=== PATIENT | female | born 2000 | race Caucasian/White ===

== ENCOUNTER 2018-08-12 20:40 | Emergency (ER) | payer OTHER ==
--- NOTE | 2018-08-12 21:06 | RAD ---
CHEST ONE VIEW: 08/12/18 HISTORY: Dyspnea. Heart size is normal. The lungs are clear. No confluent pneumonia, overt edema, or pleural effusion. IMPRESSION: No acute intrathoracic disease. POS: [facility]
[2018-08-12 21:12] LABS: #Basophils 0.1 thou/uL (0.0-0.2); #Eosinphils 0.1 thou/uL (0.0-0.7); #Lymphocytes 2.4 thou/uL (1.20-3.40); #Monocytes 0.8 thou/uL (0.11-0.59); #Neutrophils 6.3 thou/uL (1.40-6.50); %Eosinophils 0.9 % (0.0-10.0); %Lymphocytes 25.1 % (28.0-48.0); %Monocytes 7.8 % (0.0-4.0); %Neutrophils 65.2 % (31.0-61.0); Hemoglobin 14.4 g/dL (12.0-16.0); Mean Corpuscular HGB CONC 33.9 g/dL (32.0-36.0); Mean Corpuscular Hemoglobin 30.2 pg (25.0-35.0); Mean Platelet Volume 9.7 fL (7.4-10.4); Platelet Count 315 thou/uL (130-400); RBC Distribution Width 11.8 % (11.5-14.5); Red Blood Cell (RBC) Count 4.78 mill/uL (4.00-5.20); White Blood Cell (WBC) Count 9.7 thou/uL (4.8-10.8)
[2018-08-12 21:40] LABS: ALT (SGPT) 11 U/L (8-55); AST (SGOT) 16 U/L (5-34); Acetaminophen Less than 6.0 mcg/mL (10.0-30.0); Albumin 3.9 g/dL (3.5-5.0); Alcohol Less than 10 mg/dL (Less than 10); Alkaline Phosphatase 49 U/L (40-150); Anion Gap 14 mmol/L (10-20); BUN (Urea Nitrogen) 11 mg/dL (7.0-18.7); Bilirubin, Total 0.3 mg/dL (0.2-1.2); CK (CPK) 44 U/L (29-168); Calc. Creatinine Clearance 0 mL/min (70-130); Calcium 9.3 mg/dL (7.8-10.44); Carbon Dioxide 20 mmol/L (22-29); Chloride 108 mmol/L (98-107); Estimated GFR-MDRD 90; Globulin 3.3 g/dL (2.4-3.5); Glucose 110 mg/dL (70-105); Potassium 4.2 mmol/L (3.5-5.1); Protein, Total 7.2 g/dL (6.0-8.3); Salicylate Less than 8.0 mg/dL (15.0-30.0); Sodium 138 mmol/L (136-145)
[2018-08-12 22:25] LABS: Bilirubin Negative (Negative); Blood, Urine Negative (Negative); Clarity CLEAR (Clear); Glucose, Urine (Dipstick) Negative (Negative); Leukocyte Negative (Negative); Nitrite Negative (Negative); Protein, Urine (Dipstick) Negative (Neg-Trace)
[2018-08-12 22:27] LABS: Pregnancy Test - Urine (BHCG) Negative (Negative); Pregu Control Background? CLEAR/WHITE (CLR/WHITE); Pregu Control Bar Appear? YES (CONTROL BAR)
[2018-08-12 22:34] LABS: Amphetamine Not Detected (NotDetected); Barbiturates Screen Not Detected (NotDetected); Benzodiazepine Screen Not Detected (NotDetected); Cocaine Metabolite Screen Not Detected (NotDetected); Medtox Control Line Valid? VALID (VALID); Medtox Reader # READER 4; Methadone Not Detected (NotDetected); Methamphetamine Not Detected (NotDetected); Opiate Screen Not Detected (NotDetected); Oxycodone Screen Not Detected (NotDetected); Phencyclidine (PCP) Not Detected (NotDetected); THC/Cannabinoid Screen Not Detected (NotDetected); Tricyclic Screen Not Detected (NotDetected)
== END 2018-08-13 09:17 ==
LOC: ERS 20:40
DX: T43.222A Poisoning by selective serotonin reuptake inhibitors, intentional self-harm, initial encounter (principal); S70.311A Abrasion, right thigh, initial encounter; F41.9 Anxiety disorder, unspecified; F32.9 Major depressive disorder, single episode, unspecified; Z79.899 Other long term (current) drug therapy; Z79.51 Long term (current) use of inhaled steroids; W26.8XXA Contact with other sharp object(s), not elsewhere classified, initial encounter
CPT/HCPCS: 71045; 80053; 80306; 80307; 81003; 81025; 82550; 84443; 85025; 93005; 96360; 96361